=== PATIENT | male | born 1960 | race Caucasian/White ===

== ENCOUNTER 2019-07-01 16:27 | Emergency (ER) | payer BC, OTHER ==
[~2019-07-01] VITALS: Ht 175 cm; Wt 86.3 kg
[~2019-07-01 16:27] MED LIST: COLE1TAB PO; HYDR-3583 PO
--- NOTE | 2019-07-01 16:51 | NUR ---
PT DOES NOT WANT TO ELEVATE LEFT ANKLE OR A ICE PACK WHEN ASKED.
--- NOTE | 2019-07-01 17:07 | ED Lower Extremity ---
General Chief Complaint: Lower Extremity Stated Complaint: FELL,LEFT ANKLE INJ Nursing Triage Note: ARRIVED VIA WC TO TRIAGE. STATES HE STEPPED OFF A CURB HURTING HIS LEFT ANKLE. COMPLAINS OF PAIN AND SWELLING. Nursing Sepsis Screen: No Definite Risk Source: patient Exam Limitations: no limitations History of Present Illness Date Seen by Provider: Jul 01, 2019 Time Seen by Provider: 17:05 Initial Comments To ER with left lateral ankle pain and swelling after he stepped off of a curb into a storm drain twisting the left ankle. No proximal fibular pain, no foot pain.No medial ankle pain. Onset: this evening Severity: moderate Pain/Injury Location: left ankle Method of Injury: twisted Modifying Factors: Worse With Movement Allergies and Home Medications Allergies Coded Allergies: No Known Drug Allergies (Unverified , 11/23/15) Home Medications No Active Prescriptions or Reported Meds Patient Home Medication List Home Medication List Reviewed: Yes Review of Systems Constitutional: see HPI EENTM: see HPI Respiratory: no symptoms reported Cardiovascular: no symptoms reported Genitourinary: no symptoms reported Musculoskeletal: see HPI Skin: no symptoms reported Past Frruxli-Wafdzk-Aqvsnr Hx Patient Social History Alcohol Use: Denies Use Recreational Drug Use: No Smoking Status: Never a Smoker Recent Foreign Travel: No Contact w/Someone Who Travel: No Recent Infectious Disease Expo: No Recent Hopitalizations: No Immunizations Up To Date Date of Influenza Vaccine: Feb 16, 2011 Past Medical History Surgeries: Yes (2000 Colon CA, BOWEL BLOCKAGE 2004) Respiratory: No Cardiac: No Neurological: No Reproductive Disorders: No Genitourinary: No Gastrointestinal: Yes Musculoskeletal: No Endocrine: No HEENT: No Cancer: Yes Colon Psychosocial: No Integumentary: No Blood Disorders: No Physical Exam Vital Signs Vital Signs - First Documented 07/01/19 16:30 Temp 36.8 Pulse 89 Resp 16 B/P (MAP) 147/93 (111) Pulse Ox 99 O2 Delivery Room Air Capillary Refill : Less Than 3 Seconds Height, Weight, BMI Height: 5'9.50" Weight: 170lbs. 0.0oz. [id number]; 28.00 BMI Method:Stated General Appearance: WD/WN, no apparent distress Respiratory: no respiratory distress, no accessory muscle use Hips: bilateral hip non-tender, bilateral hip normal inspection, bilateral hip normal range of motion Legs: bilateral leg non-tender, bilateral leg normal inspection, bilateral leg normal range of motion Knees: bilateral knee non-tender, bilateral knee normal inspection, bilateral knee normal range of motion Ankles: left ankle pain, left ankle soft tissue tenderness, left ankle swelling, left ankle other (pain soft tissue tenderness and swelling over the lateral malleolus, 2+ and strength dorsalis pedis pulse the foot is warm. There is no medial ankle pain or tenderness) Neurologic/Psychiatric: alert, normal mood/affect, oriented x 3 Skin: normal color, warm/dry Progress/Results/Core Measures Results/Orders My Orders Orders - SMITH CHILDERS APRN Ankle, Left, 3 Views (07/01/19 17:02) Vital Signs/I&O 07/01/19 16:30 Temp 36.8 Pulse 89 Resp 16 B/P (MAP) 147/93 (111) Pulse Ox 99 O2 Delivery Room Air Blood Pressure Mean: 111 Diagnostic Imaging Diagonstic Imaging: Xray Comments NAME: ALONZO [facility] REC#: [id number] PT STATUS: REG ER : 1960 PHYSICIAN: SMITH CHILDERS APRN ADMIT DATE: 07/01/19/ER Draft Date of Exam:07/01/19 ANKLE, LEFT, 3 VIEWS INDICATION: Left ankle pain after injury. AP, oblique, and lateral views of the left ankle are obtained. FINDINGS: There is extensive lateral ankle swelling. No acute fracture or dislocation is identified. No abnormal lytic or sclerotic focus is seen, and there is no radiopaque foreign body. IMPRESSION: Lateral ankle swelling could indicate underlying ligamentous injury; however, no acute osseous abnormality is detected. Dictated on workstation # [id number] Dict: 07/01/197 Trans: 07/01/191717 [id number] Interpreted by: BIANKA MANLEY MD Electronically signed by: Departure Impression Primary Impression: Sprain and strain of ankle Disposition: 01 HOME, SELF-CARE Condition: Stable Departure-Patient Inst. Decision time for Depature: 17:18 Referrals: AIME SOTO MD (PCP) Primary Care Physician Patient Instructions: Ankle Sprain Add. Discharge Instructions: . Rest, ice to the ankle at 30 minute intervals several times a day for the next few days. Aram wrap and elevate this. I will help with swelling and subsequently the pain. You are allowed to bear weight on her foot whenever you can do so without severe pain. As long as it is hurting use crutches. Expect to wear the stirrup splint when you're up moving about for the next 1-2 weeks. Follow-up with Dr. Soto for reevaluation next week if you have persistent pain. All discharge instructions reviewed with patient and/or family. Voiced und erstanding. Scripts No Active Prescriptions or Reported Meds SMITH CHILDERS APRN Jul 01, 2019 17:07
--- NOTE | 2019-07-01 17:18 | Diagnostic Imaging Report ---
INDICATION: Left ankle pain after injury. AP, oblique, and lateral views of the left ankle are obtained. FINDINGS: There is extensive lateral ankle swelling. No acute fracture or dislocation is identified. No abnormal lytic or sclerotic focus is seen, and there is no radiopaque foreign body. IMPRESSION: Lateral ankle swelling could indicate underlying ligamentous injury; however, no acute osseous abnormality is detected. Dictated by: Dictated on workstation # [id number]
[2019-07-01 17:37] VITALS: BP 147/93
== END 2019-07-01 17:37 | disposition home or self-care (01) ==
LOC: EDUNIT# 16:27 → ER 16:29
DX: S93.402A Sprain of unspecified ligament of left ankle, initial encounter (principal); Z85.038 Personal history of other malignant neoplasm of large intestine; X50.1XXA Overexertion from prolonged static or awkward postures, initial encounter
CPT/HCPCS: 73610